=== PATIENT | female | born 1995 | race Caucasian/White ===

== ENCOUNTER 2019-05-27 21:55 | Emergency (ER) | payer MEDICAID ==
--- NOTE | 2019-05-27 22:16 | ED Physician Chart ---
ED Chief Complaint/HPI - Patient Information Date Seen:: 05/27/19 Time Seen:: 22:13 Chief Complaint:: infected left forth finger History of Present Illness:: this is a 24 yo female who is concerned about the swelling, redness and tenderness of the right fouth nail bed area. Vitals:: Vital Signs - 8 hr 05/27/19 22:08 Temp 99.2 F HR 103 RR 19 BP 114/70 O2 Sat % 97 Historian:: Patient Review:: Nurse's Note Reviewed ED Review of Systems - Review of Systems General/Constitutional: No fever, No chills, No weight loss, No weakness, No diaphoresis, No edema, No loss of appetite Skin: No skin lesions, No rash, No bruising Head: No headache, No light-headedness Eyes: No loss of vision, No pain, No diplopia ENT: No earache, No nasal drainage, No sore throat, No tinnitus Neck: No neck pain, No swelling, No thyromegaly, No stiffness, No mass noted Cardio Vascular: No chest pain, No palpitations, No PND, No orthopnea, No edema Pulmonary: No SOB, No cough, No sputum, No wheezing GI: No nausea, No vomiting, No diarrhea, No pain, No melena, No hematochezia, No constipation, No hematemesis G/U: No dysuria, No frequency, No hematuria Musculoskeletal: No bone or joint pain, No back pain, No muscle pain, Other ( left fourth finger infection) Endocrine: No polyuria, No polydipsia Psychiatric: No prior psych history, No depression, No anxiety, No suicidal ideation Hematopoietic: No bruising, No lymphadenopathy Allergic/Immuno: No urticaria, No angioedema Neurological: No syncope, No focal symptoms, No weakness, No paresthesia, No headache, No seizure, No dizziness, No confusion, No vertigo ED Past Medical History - Past Medical History Obtainable: Yes Past Medical History: No significant medical hx Family History: None Social History: Non Smoker, No Alcohol, No Drug Use, Surgical History: None Psychiatricy History: None ED Physical Exam - Physical Examination Extremities: Normal digits & nails (the left fourth finger nail base is red, tender and swollen with pus noted on the dorsal side.) ED Assessment - Assessment General Assessment: paronychia of the left fourth fingernail - Procedures Informed Consent: Procedure/risk/benefits explained by MD: Yes (a small puncture of the area of pus was done with a 23 gauge needle ) ED Septic Shock - . Is Septic Shock (SBP<90, OR Lactate>4 mmol\L) present?: No - <6hrs of presentation: Vital Signs: Vital Signs - 8 hr 05/27/19 22:08 Temp 99.2 F HR 103 RR 19 BP 114/70 O2 Sat % 97 ED Reassessment (Disposition) - Reassessment Reassessment Condition:: Improved - Diagnosis Diagnosis:: paronychia of the left fourth finger - Aftercare/Follow up Instructions Aftercare/Follow-Up Instructions:: Counseled pt regarding lab results/diagnosis & need follow up, Refer to Discharge Instructions, Counseled pt & family regarding lab results/diagnosis & need follow up Notes:: she was told to soak the finger in warm soapy water for 20 minutes at home and take the antibiotics. Medication Prescribed:: [id number] - Patient Disposition Discharge/Transfer:: Home Condition at Disposition:: Improved
[2019-05-27 22:19] VITALS: BP 114/70
== END 2019-05-27 22:37 | disposition home or self-care (01) ==
LOC: ER 21:55
DX: L03.012 Cellulitis of left finger (principal)
CPT/HCPCS: Z7502